=== PATIENT | male | born 1950 | race Caucasian/White ===

== ENCOUNTER 2025-07-10 12:36 | Observation (INO) ==
--- NOTE | 2025-07-10 13:40 | DR.ABDMALE ---
HPI Time seen Time Seen by Provider: 07/10/25 13:39 PCP Primary Care Physician: HAROLDO GARDNER Complaint Chief Complaint Doctors Comments: Patient with complaint of left lower quadrant pain since yesterday morning. Patient states the pain is worsening. Patient denies fever. Patient denies diarrhea, constipation, vomiting or nausea. Chief Complaint:: Pt states he woke up yesterday morning with LLQ pain with pain progressively getting worse. Now it is a sharp stabbing pain. Pt states he had a normal BM yesterday, no diarrhea. Pt ate a meal around 3 pm yesterday but has not had anything else since. Pt states he took his levothyroxine this morning and a glass of water, nothing else. COVID-19 Coronavirus risk:travel/contact w/high risk person: No Has patient experienced Coronavirus symptoms: No Mode of arrival Mode of Arrival: Ambulatory Timing Onset of Chief Complaint: 07/09/25 PMH PMH Past Medical History: Yes Past Medical History: Hypertension and Hypothyroidism Past Medical History Comment: PROSTATE PROBLEMS TAKES BABY ASPIRIN FARXIGA Past Surgical History: Yes Surgical History: Cholecystectomy and Ortho Surgery Family History History of Family Medical Conditions: Yes Family Medical History: Hypertension Social History Does patient currently use any type of tobacco product: No Have you used tobacco products in the last 12 months: No Type of Tobacco Use: None Does any household member use tobacco: No Alcohol Use: None Do you use any recreational Drugs:: No Lives With: Alone Lives Where: Home Travel Risk Coronavirus risk:travel/contact w/high risk person: No Has patient experienced Coronavirus symptoms: No Infectious screening In the last 2 months have you had wt loss of >10#?: NO Have you had fever, night sweats or hemotysis?: No Have you traveled outside the country in the last 6 months?: No Isolation: Standard ROS Review of Systems Constitutional: No Symptoms Reported Eyes: No Symptoms Reported ENTM: No Symptoms Reported Respiratoy: No Symptoms Reported Cardiovascular: No Symptoms Reported Gastrointestinal/Abdominal: See HPI Genitourinary: No Symptoms Reported Neurological: No Symptoms Reported Musculoskeletal: No Symptoms Reported Integumentary: No Symptoms Reported Hematologic/Lymphatic: No Symptoms Reported Endocrine: No Symptoms Reported Psychiatric: No Symptoms Reported All Other Systems: Reviewed and Negative PE Vital Signs Vital Signs: Temp Pulse Resp BP Pulse Ox O2 Del Method 07/10/25 12:52 97.8 F 72 20 130/58 95 Room Air General Limitations: No Limitations General Appearance: Alert and In No Apparent Distress Head Head Exam: Normal Inspection Eyes Eye exam: Normal Appearance Neck Neck Exam: Normal Inspection Chest Chest Inspection: Normal Inspection Respiratory Respiratory Exam: Normal Lung Sounds Bilat Cardiovascular Cardiovascular Exam: Regular Rate and Normal Rhythm Abdominal Exam Abdominal Exam: Normal Inspection, Normal Bowel Sounds, Soft and Tenderness (Left lower quadrant); negative Distention, Guarding, Rebound, Rigidity, Organomegaly or Ascites Rectal Rectal Exam: Deferred Back Back Exam: Normal Inspection Extremeties Extremities Exam: Normal Inspection Exam: Male: Deferred Neurologic Neurological Exam: Alert and Oriented X3 Psychiatric Psychiatric Exam: Normal Affect and Normal Mood Skin Skin Exam: Warm, Dry, Intact and Normal Color COURSE Treatment Treatment: Discussed results of workup with patient and family. Patient agreeable to admission Consultation Consultation Comments: Discussed case with Dr. Trinh and he is agreeable to admission. ROR Labs Reviewed Laboratory Results Reviewed?: Yes 07/10/25 13:50 07/10/25 13:50 Laboratory: WBC 12.8 X10^3/uL (3.6-10.0) H 07/10/25 13:50 RBC 4.92 X10^6/uL (4.7-6.0) 07/10/25 13:50 Hgb 15.1 g/dL (13.5-18.0) 07/10/25 13:50 Hct 45.1 % (42.0-54.0) 07/10/25 13:50 MCV 91.6 fL (80.0-100.0) 07/10/25 13:50 MCH 30.6 pg (27.0-34.0) 07/10/25 13:50 MCHC 33.4 g/dL (33.0-35.0) 07/10/25 13:50 RDW 14.9 % (11.6-16.5) 07/10/25 13:50 Plt Count 200 X10^3/uL (150.0-450.0) 07/10/25 13:50 MPV 8.8 fL (7.4-11.0) 07/10/25 13:50 Neut % (Auto) 77.9 % (42.0-75.0) H 07/10/25 13:50 Lymph % (Auto) 9.0 % (21.0-51.0) L 07/10/25 13:50 Dunn % (Auto) 12.3 % (0.0-13.0) 07/10/25 13:50 Eos % (Auto) 0.5 % (0.9-2.9) L 07/10/25 13:50 Baso % (Auto) 0.3 % (0.2-1.0) 07/10/25 13:50 Neut # (Auto) 10.0 x10^3/uL (2.2-4.8) H 07/10/25 13:50 Lymph # (Auto) 1.1 X10^3/uL (1.3-2.9) L 07/10/25 13:50 Dunn # (Auto) 1.6 x10^3/uL (0.3-0.8) H 07/10/25 13:50 Eos # (Auto) 0.1 x10^3/uL (0.0-0.2) 07/10/25 13:50 Baso # (Auto) 0.0 X10^3/uL (0.0-0.1) 07/10/25 13:50 Absolute Nucleated RBC 0.0 /100WBC 07/10/25 13:50 Sodium 138 mmol/L (136-145) 07/10/25 13:50 Corrected Sodium TNP 07/10/25 13:50 Potassium 4.8 mmol/L (3.5-5.1) 07/10/25 13:50 Chloride 102 mmol/L (98-107) 07/10/25 13:50 Carbon Dioxide 28.6 mmol/L (21-32) 07/10/25 13:50 BUN 26 mg/dL (7-18) H 07/10/25 13:50 Creatinine 1.74 mg/dL (0.70-1.30) H 07/10/25 13:50 Est GFR (MDRD) Af Amer 49 (>60) L 07/10/25 13:50 Est GFR (MDRD) Non-Af 41 (>60) L 07/10/25 13:50 Glucose 98 mg/dL (65-99) 07/10/25 13:50 Calcium 8.7 mg/dL (8.5-10.1) 07/10/25 13:50 Corrected Calcium TNP 07/10/25 13:50 Total Bilirubin 0.60 mg/dL (0.2-1.0) 07/10/25 13:50 AST 15 Units/L (15-37) 07/10/25 13:50 ALT 22 Units/L (12-78) 07/10/25 13:50 Alkaline Phosphatase 44 Units/L (46-116) L 07/10/25 13:50 Total Protein 7.7 g/dL (6.4-8.2) 07/10/25 13:50 Albumin 3.4 g/dL (3.4-5.0) 07/10/25 13:50 Globulin 4.3 g/dL (2.5-4.5) 07/10/25 13:50 Albumin/Globulin Ratio 0.8 Ratio (1.1-2.1) L 07/10/25 13:50 Amylase 104 Units/L (25-115) 07/10/25 13:50 Lipase 81 Units/L (16-77) H 07/10/25 13:50 Specimen Type Clean catch urine 07/10/25 14:17 Urine Color Yellow (YELLOW) 07/10/25 14:17 Urine Appearance Clear (CLEAR) 07/10/25 14:17 Urine pH 6.0 (5.0 - 8.0) 07/10/25 14:17 Ur Specific [place] 1.020 (1.000-1.030) 07/10/25 14:17 Urine Protein 2+ (NEGATIVE) 07/10/25 14:17 Urine Glucose (UA) 1+ (NEGATIVE) 07/10/25 14:17 Urine Ketones Negative (NEGATIVE) 07/10/25 14:17 Urine Blood 2+ (NEGATIVE) 07/10/25 14:17 Urine Nitrite Negative (NEGATIVE) 07/10/25 14:17 Urine Bilirubin Negative (NEGATIVE) 07/10/25 14:17 Urine Urobilinogen Normal (NORMAL) 07/10/25 14:17 Ur Leukocyte Esterase Negative (NEGATIVE) 07/10/25 14:17 Urine RBC 0-2 /HPF (0-3) 07/10/25 14:17 Urine WBC 0-2 /HPF (0-5) 07/10/25 14:17 Ur Squamous Epith Cells Rare /HPF (NEGATIVE) 07/10/25 14:17 Urine Bacteria Trace /HPF (NEGATIVE) 07/10/25 14:17 Hyaline Casts Few /LPF (NEGATIVE) 07/10/25 14:17 Ur Culture Indicated? No/not indicated 07/10/25 14:17 Other Results Comments: [id number] 1950 Sex: M Location: ER Order Number(s): [id number] Procedure(s):CT ABDOMEN/PELVIS W/O CON Ordering Physician: Arthur Dobbs Primary Care: HAROLDO GARDNER Service Date: 07/10/25 Service Time: 1339 EXAM: CT ABDOMEN AND PELVIS WITHOUT CONTRAST HISTORY: ABDOMINAL PAIN ; COMPARISON: CT abdomen and pelvis dated January 24, 2022. TECHNIQUE: Axial CT images were obtained through the abdomen and pelvis without contrast. Coronal reformatted images were included. All CT scans at this facility use dose modulation, iterative reconstruction, and/or weight based dosing when appropriate to reduce radiation dose to as low as reasonably achievable. FINDINGS: Technical note: Without the use of intravenous contrast, evaluation of solid abdominal viscera, vascular structures, urinary structures, and bowel is limited. LOWER THORAX: Unremarkable. ABDOMEN: LIVER: Unremarkable. GALLBLADDER: Status post cholecystectomy. SPLEEN: Unremarkable. PANCREAS: Unremarkable. KIDNEYS: No obstructive uropathy. Mild bilateral perinephric stranding/fluid is nonspecific and can be seen normally but can also be associated with UTI, correlate clinically. ADRENAL GLANDS: Unremarkable. ABDOMINAL AORTA: Calcifications of the abdominal aorta without evidence of aneurysmal dilatation. 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 LYMPH NODES: No evidence of enlarged nodes. GI TRACT: No evidence for intestinal obstruction. Colonic diverticulosis. Diverticulitis of the distal descending colon at its junction with the sigmoid colon within the upper left pelvis. No evidence for abscess or free air. ASCITES: None. PNEUMOPERITONEUM: None. Umbilical/periumbilical fat containing abdominal wall hernia. This is stable compared to the prior CT exam. PELVIS: APPENDIX: Unremarkable. RECTOSIGMOID COLON: Unremarkable. BLADDER: Unremarkable GENITALS: Prostate does not appear to be enlarged. ASCITES: None. LYMPH NODES: No evidence for enlarged nodes. INGUINAL HERNIA: None. BONES: Degenerative changes of the spine and the SI joints. IMPRESSION: Diverticulitis of the distal descending colon at its junction with the sigmoid colon within the upper left pelvis. No evidence for abscess or free air. Mild bilateral perinephric stranding/fluid is nonspecific and can be seen normally but can also be associated with UTI, correlate clinically. Other findings as above. THIS IS AN ELECTRONICALLY VERIFIED FINAL REPORT 07/10/2025 4:06 PM - Electronically signed by Jaya Brennan DO Opioid Opioid Risk Tool Age (G[place]ito box if 16-45): No History of Preadolescent Sexual Abuse: No Total: 0 Total Score Risk Category: Low Risk Copyright: [facility] predicting aberrant behaviors Discharge Plan Diagnosis Discharge Problem: Diverticulitis, Acute kidney injury, Elevated WBC count Discharge Plan Patient Disposition: ADMITTED INPATIENT Condition: Stable Prescriptions: No Action temazepam 30 mg Capsule 30 mg PO HS levothyroxine 50 mcg Tablet 50 mcg PO DAILY omeprazole 20 mg Capsule,Delayed Release(Dr/Ec) 20 mg PO DAILY doxazosin 2 mg Tablet 2 mg PO DAILY Health Concerns: Post Hospitalization: new medications and changes needed to prevent readmission or further decline. Pt educated and given instructions on all concerns. Plan of Treatment: Continue with present treatment and follow up plan. Pt is to keep follow up appointment as instructed and take medications as ordered. Orders to Discharge Patient Discharge Orders: Transfer (Routine); Ordered 07/10/25 Ordered By: Arthur Dobbs Follow ups/Referrals Follow ups/Referrals: HAROLDO GARDNER [Primary Care Provider, Unknown] - 3 days Instructions Stand Alone Forms: Find Help Web Site, Post Hospital Follow Up Care Print Language: UZBEK
[2025-07-10 13:56] LABS: MEAN PLATELET VOLUME 8.8 fL (7.4-11.0); RED CELL DISTRIBUTION WIDTH 14.9 % (11.6-16.5)
[2025-07-10 14:10] LABS: CREATININE 1.74 mg/dL (0.70-1.30); eGFR NON BLACK RACES 41 (>60)
[2025-07-10 14:29] LABS: BLOOD/HEMOGLOBIN,URINE 2+ (NEGATIVE); LEUKOCYTE ESTERASE ,URINE NEGATIVE (NEGATIVE); NITRITES,URINE NEGATIVE (NEGATIVE)
[2025-07-10 14:30] LABS: APPEARANCE,URINE CLEAR (CLEAR)
[2025-07-10 14:41] LABS: HYALINE CASTS, URINE FEW /LPF (NEGATIVE); SQUAMOUS EPITHELIAL CELL,UR RARE /HPF (NEGATIVE)
--- NOTE | 2025-07-10 16:09 | CT ---
EXAM: CT ABDOMEN AND PELVIS WITHOUT CONTRAST HISTORY: ABDOMINAL PAIN ; COMPARISON: CT abdomen and pelvis dated January 24, 2022. TECHNIQUE: Axial CT images were obtained through the abdomen and pelvis without contrast. Coronal reformatted images were included. All CT scans at this facility use dose modulation, iterative reconstruction, and/or weight based dosing when appropriate to reduce radiation dose to as low as reasonably achievable. FINDINGS: Technical note: Without the use of intravenous contrast, evaluation of solid abdominal viscera, vascular structures, urinary structures, and bowel is limited. LOWER THORAX: Unremarkable. ABDOMEN: LIVER: Unremarkable. GALLBLADDER: Status post cholecystectomy. SPLEEN: Unremarkable. PANCREAS: Unremarkable. KIDNEYS: No obstructive uropathy. Mild bilateral perinephric stranding/fluid is nonspecific and can be seen normally but can also be associated with UTI, correlate clinically. ADRENAL GLANDS: Unremarkable. ABDOMINAL AORTA: Calcifications of the abdominal aorta without evidence of aneurysmal dilatation. 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 LYMPH NODES: No evidence of enlarged nodes. GI TRACT: No evidence for intestinal obstruction. Colonic diverticulosis. Diverticulitis of the distal descending colon at its junction with the sigmoid colon within the upper left pelvis. No evidence for abscess or free air. ASCITES: None. PNEUMOPERITONEUM: None. Umbilical/periumbilical fat containing abdominal wall hernia. This is stable compared to the prior CT exam. PELVIS: APPENDIX: Unremarkable. RECTOSIGMOID COLON: Unremarkable. BLADDER: Unremarkable GENITALS: Prostate does not appear to be enlarged. ASCITES: None. LYMPH NODES: No evidence for enlarged nodes. INGUINAL HERNIA: None. BONES: Degenerative changes of the spine and the SI joints. IMPRESSION: Diverticulitis of the distal descending colon at its junction with the sigmoid colon within the upper left pelvis. No evidence for abscess or free air. Mild bilateral perinephric stranding/fluid is nonspecific and can be seen normally but can also be associated with UTI, correlate clinically. Other findings as above. THIS IS AN ELECTRONICALLY VERIFIED FINAL REPORT 07/10/2025 4:06 PM - Electronically signed by Jaya Brennan DO
[2025-07-10] MEDS ORDERED: ROCEPHIN VIAL 1 GRAM IM SCH (17:00)
[2025-07-10] MEDS: NS 1,000 ML IV 1,000 ML IV ONE (17:04)
[2025-07-10] MEDS: FLAGYL IV PREMIX 500 MG BAG 500 MG/100 ML BAG IV SCH (17:04)
[2025-07-10] MEDS: ROCEPHIN VIAL 1 GRAM IV ONE (17:04)
[2025-07-10] MEDS ORDERED: NovoLIN R (or HumuLIN R) SUBCUT PRN (18:01)
[2025-07-10] MEDS ORDERED: TYLENOL 325 MG TAB PO PRN (18:01)
[2025-07-10] MEDS ORDERED: ZOFRAN INJ 4 MG VIAL IVP PRN (18:01)
[2025-07-10] MEDS ORDERED: MORPHINE SULFATE INJ 2 MG INJ IVP PRN (18:01)
[2025-07-10] MEDS ORDERED: CONSULT PHARMACY - POTASSIUM & MAGNESIUM XX SCH (18:01)
[2025-07-10] MEDS ORDERED: ULTRAM PO PRN (18:01)
[2025-07-10] MEDS ORDERED: NORCO 5/325 MG TAB PO PRN (18:01)
[2025-07-10] MEDS: ROCEPHIN VIAL 1 GRAM 1 G in NS 100 ML IV 100 ML IV SCH (18:28)
[2025-07-10 19:15] VITALS: BMI 35.6
[2025-07-10] MEDS: NS 1,000 ML IV 1,000 ML IV SCH (19:28)
[2025-07-10] MEDS ORDERED: SNACK - Diabetic Appropriate PO SCH (20:00)
[2025-07-10] MEDS: MAG-OX TAB PO ONE (20:26)
[2025-07-10] MEDS: RESTORIL CAP 15 MG PO SCH (20:26)
[2025-07-11 05:19] LABS: COR CA(FOR HYPOALB) 9.1 mg/dL (8.5-10.1); CREATININE 1.57 mg/dL (0.70-1.30); eGFR NON BLACK RACES 46 (>60)
[2025-07-11 05:23] LABS: MEAN PLATELET VOLUME 9.3 fL (7.4-11.0); RED CELL DISTRIBUTION WIDTH 14.7 % (11.6-16.5)
[2025-07-11] MEDS: CARDURA PO SCH (09:00)
[2025-07-11] MEDS: ASPIRIN EC 81 MG PO SCH (09:34)
[2025-07-11 12:07] VITALS: BP 118/56; PULSE 62; RESP 16; TEMP 97.9; O2SAT 95
--- NOTE | 2025-07-17 11:36 | DR.SSS ---
SHORT STAY SUMMARY Admission Date Date of Admission: 07/10/25 Discharge Date Discharge Date: 07/11/25 Admission Diagnoses Admission Diagnoses: Abdominal pain DORCAS Acute diverticulitis Discharge Diagnoses Discharge Diagnoses: Diverticulitis Abdominal pain Dehydration DORCAS on CKD Chief Complaint Chief Complaint: abdominal pain, N/V History of Present Illness History of Present Illness: Patient is a 75-year-old male with a past medical history of hypertension, CKD, hypothyroidism presented with worsening abdominal pain. ER workup included CTAP which showed diverticulitis. Patient was started on IV fluids and antibiotics. He was admitted for further management. Past Medical History Past Medical History: Hypertension and Hypothyroidism Past Surgical History Surgical History: Cholecystectomy and Ortho Surgery Allergies Allergies Allergy/AdvReac Type Severity Reaction Status Date / Time ondansetron (From Zofran) Allergy Verified 02/27/22 08:47 tamsulosin (From Flomax) Allergy Verified 02/27/22 08:47 Medications Home Medications: ondansetron (From Zofran) Allergy (Verified 02/27/22 08:47) tamsulosin (From Flomax) Allergy (Verified 02/27/22 08:47) CONTINUE taking the following medications amlodipine 10 mg tablet 10 mg PO HS 07/10/25 [History] aspirin 81 mg tablet,delayed release 81 mg PO QDAY 07/10/25 [History] cetirizine 10 mg tablet 10 mg PO QDAY 07/10/25 [History] dapagliflozin propanediol 10 mg tablet (Farxiga) 10 mg PO HS 07/10/25 [History] ergocalciferol (vitamin D2) 1,250 mcg (50,000 unit) capsule 1,250 mcg PO WEEKLY 07/10/25 [History] magnesium 200 mg tablet 200 mg PO DAILY leg cramps 07/10/25 [History] olmesartan 40 mg-hydrochlorothiazide 25 mg tablet 1 tab PO HS 07/10/25 [History] New Prescriptions ciprofloxacin HCl 500 mg tablet 500 mg PO BID 7 days #14 tabs 07/11/25 [Rx] metronidazole 500 mg tablet 500 mg PO Q8H 7 days #21 tabs 07/11/25 [Rx] Family History Family Medical History: Diabetes Mellitus, Cancer, [place], Coronary Artery Disease, Heart Failure, Sudden Cardiac and Hypertension Social History Does patient currently use any type of tobacco product: No Have you used tobacco products in the last 12 months: No Type of Tobacco Use: None Does any household member use tobacco: No Alcohol Use: None Drug Use: None Physical Exam Vital Signs: Last Vital Signs Temp 97.9 F 07/11/25 12:00 Pulse 62 07/11/25 12:00 Resp 16 07/11/25 12:00 BP 118/56 07/11/25 12:00 Pulse Ox 95 07/11/25 12:00 O2 Del Method Room Air 07/11/25 12:00 Oriented: Normal Eyes: Normal Respiratory: Clear Throughout Cardiovascular: Normal Auscultation: Bowel Sounds: Normal Palpation: Normal Tenderness: Normal Skin: Normal Musculoskeletal: Normal Psychiatric: Normal Affect: Normal Speech Pattern: Clear Labs Labs: Laboratory Last Values WBC 10.0 X10^3/uL (3.6-10.0) 07/11/25 04:46 RBC 4.40 X10^6/uL (4.7-6.0) L 07/11/25 04:46 Hgb 13.7 g/dL (13.5-18.0) 07/11/25 04:46 Hct 40.2 % (42.0-54.0) L 07/11/25 04:46 MCV 91.4 fL (80.0-100.0) 07/11/25 04:46 MCH 31.2 pg (27.0-34.0) 07/11/25 04:46 MCHC 34.2 g/dL (33.0-35.0) 07/11/25 04:46 RDW 14.7 % (11.6-16.5) 07/11/25 04:46 Plt Count 185 X10^3/uL (150.0-450.0) 07/11/25 04:46 MPV 9.3 fL (7.4-11.0) 07/11/25 04:46 Neut % (Auto) 70.4 % (42.0-75.0) 07/11/25 04:46 Lymph % (Auto) 15.4 % (21.0-51.0) L 07/11/25 04:46 Scott % (Auto) 13.2 % (0.0-13.0) H 07/11/25 04:46 Eos % (Auto) 0.7 % (0.9-2.9) L 07/11/25 04:46 Baso % (Auto) 0.3 % (0.2-1.0) 07/11/25 04:46 Neut # (Auto) 7.0 x10^3/uL (2.2-4.8) H 07/11/25 04:46 Lymph # (Auto) 1.5 X10^3/uL (1.3-2.9) 07/11/25 04:46 Scott # (Auto) 1.3 x10^3/uL (0.3-0.8) H 07/11/25 04:46 Eos # (Auto) 0.1 x10^3/uL (0.0-0.2) 07/11/25 04:46 Baso # (Auto) 0.0 X10^3/uL (0.0-0.1) 07/11/25 04:46 Absolute Nucleated RBC 0.2 /100WBC 07/11/25 04:46 Sodium 141 mmol/L (136-145) 07/11/25 04:46 Corrected Sodium TNP 07/11/25 04:46 Potassium 4.9 mmol/L (3.5-5.1) 07/11/25 04:46 Chloride 106 mmol/L (98-107) 07/11/25 04:46 Carbon Dioxide 29.2 mmol/L (21-32) 07/11/25 04:46 BUN 22 mg/dL (7-18) H 07/11/25 04:46 Creatinine 1.57 mg/dL (0.70-1.30) H 07/11/25 04:46 Est GFR (MDRD) Af Amer 56 (>60) L 07/11/25 04:46 Est GFR (MDRD) Non-Af 46 (>60) L 07/11/25 04:46 Glucose 100 mg/dL (65-99) H 07/11/25 04:46 Calcium 8.1 mg/dL (8.5-10.1) L 07/11/25 04:46 Corrected Calcium 9.1 mg/dL (8.5-10.1) 07/11/25 04:46 Total Bilirubin 0.60 mg/dL (0.2-1.0) 07/11/25 04:46 AST 14 Units/L (15-37) L 07/11/25 04:46 ALT 15 Units/L (12-78) 07/11/25 04:46 Alkaline Phosphatase 38 Units/L (46-116) L 07/11/25 04:46 Total Protein 6.7 g/dL (6.4-8.2) 07/11/25 04:46 Albumin 2.7 g/dL (3.4-5.0) L 07/11/25 04:46 Globulin 4.0 g/dL (2.5-4.5) 07/11/25 04:46 Albumin/Globulin Ratio 0.7 Ratio (1.1-2.1) L 07/11/25 04:46 Amylase 104 Units/L (25-115) 07/10/25 13:50 Lipase 81 Units/L (16-77) H 07/10/25 13:50 Specimen Type Clean catch urine 07/10/25 14:17 Urine Color Yellow (YELLOW) 07/10/25 14:17 Urine Appearance Clear (CLEAR) 07/10/25 14:17 Urine pH 6.0 (5.0 - 8.0) 07/10/25 14:17 Ur Specific [place] 1.020 (1.000-1.030) 07/10/25 14:17 Urine Protein 2+ (NEGATIVE) 07/10/25 14:17 Urine Glucose (UA) 1+ (NEGATIVE) 07/10/25 14:17 Urine Ketones Negative (NEGATIVE) 07/10/25 14:17 Urine Blood 2+ (NEGATIVE) 07/10/25 14:17 Urine Nitrite Negative (NEGATIVE) 07/10/25 14:17 Urine Bilirubin Negative (NEGATIVE) 07/10/25 14:17 Urine Urobilinogen Normal (NORMAL) 07/10/25 14:17 Ur Leukocyte Esterase Negative (NEGATIVE) 07/10/25 14:17 Urine RBC 0-2 /HPF (0-3) 07/10/25 14:17 Urine WBC 0-2 /HPF (0-5) 07/10/25 14:17 Ur Squamous Epith Cells Rare /HPF (NEGATIVE) 07/10/25 14:17 Urine Bacteria Trace /HPF (NEGATIVE) 07/10/25 14:17 Hyaline Casts Few /LPF (NEGATIVE) 07/10/25 14:17 Ur Culture Indicated? No/not indicated 07/10/25 14:17 Hospital Course Hospital Course: Patient remained on IV antibiotics. His labs are monitored daily and electrolytes replaced as needed. He was tolerating p.o. intake. His abdominal pain, nausea and vomiting had resolved. He was ambulating in the room. His renal function improved. He was stable for discharge. He will be discharged on p.o. antibiotics. He will follow-up with PCP as scheduled. Discharge Medications Discharge Medications: Home Medication List amlodipine 10 mg tablet 10 mg PO HS 07/10/25 [History] aspirin 81 mg tablet,delayed release 81 mg PO QDAY 07/10/25 [History] cetirizine 10 mg tablet 10 mg PO QDAY 07/10/25 [History] dapagliflozin propanediol 10 mg tablet (Farxiga) 10 mg PO HS 07/10/25 [History] ergocalciferol (vitamin D2) 1,250 mcg (50,000 unit) capsule 1,250 mcg PO WEEKLY 07/10/25 [History] magnesium 200 mg tablet 200 mg PO DAILY leg cramps 07/10/25 [History] olmesartan 40 mg-hydrochlorothiazide 25 mg tablet 1 tab PO HS 07/10/25 [History] ciprofloxacin HCl 500 mg tablet 500 mg PO BID 7 days #14 tabs 07/11/25 [Rx] metronidazole 500 mg tablet 500 mg PO Q8H 7 days #21 tabs 07/11/25 [Rx] Prescriptions: ciprofloxacin HCl Melissa Webster metronidazole Melissa Webster Discharge Disposition Discharge Disposition: home Discharge Plan Discharge Plan Patient Disposition: HOME, SELF-CARE Condition: Stable Health Concerns: Post Hospitalization: new medications and changes needed to prevent readmission or further decline. Pt educated and given instructions on all concerns. Care Plan Goals: Problem: Pain/Alteration in Comfort Goal: Improve/ Resolve Pain; Achieve Pain Tolerance Instructions: Take pain medications as prescribed. Contact your primary care provider if your pain is unrelieved or worsens. Follow up with primary care provider as directed. Plan of Treatment: Continue with present treatment and follow up plan. Pt is to keep follow up appointment as instructed and take medications as ordered. Assessment: No distress noted. Prescription drug monitoring program results: PDMP reviewed and no concerns identified Prescriptions: New ciprofloxacin HCl 500 mg tablet 500 mg PO BID 7 Days Qty: 14 0RF metronidazole 500 mg tablet 500 mg PO Q8H 7 Days Qty: 21 0RF Continued levothyroxine 50 mcg Tablet 75 mcg PO DAILY doxazosin 2 mg Tablet 2 mg PO HS dapagliflozin propanediol [Farxiga] 10 mg tablet 10 mg PO HS amlodipine 10 mg tablet 10 mg PO HS olmesartan-hydrochlorothiazide 40-25 mg tablet 1 tab PO HS aspirin 81 mg Tablet,Delayed Release (Dr/Ec) 81 mg PO QDAY cetirizine 10 mg Tablet 10 mg PO QDAY ergocalciferol (vitamin D2) 1,250 mcg (50,000 unit) Capsule 1,250 mcg PO WEEKLY Patient Comments: Patient takes once a week on Friday. magnesium 200 mg Tablet 200 mg PO DAILY Orders to Discharge Patient Discharge Orders: Discharge (Routine); Ordered 07/11/25 Ordered By: Melissa Webster Follow ups/Referrals Follow ups/Referrals: Jayden Zimmerman [STAFF PHYSICIAN, MEDICAL] - 07/18/25 9:20 am Instructions Instructions: Acute Kidney Injury, Adult, Diverticulitis, [id number], Form - Blood Pressure Record Sheet, Managing Your Hypertension Activity Restrictions/Additional Instructions: needs to recheck kidney function at PCP follow up. Resume olmesartan-hctz after seen by PCP. Monitor blood pressure daily. Stand Alone Forms: Find Help Web Site, Post Hospital Follow Up Care Print Language: HUNGARIAN
== END 2025-07-11 14:55 | disposition home or self-care (01) ==
LOC: ER 12:41 → MED/SURG 12:41
PROVIDERS: ADMIT Family Medicine; ATTEND Internal Medicine
DX: R94.4 Abnormal results of kidney function studies; Z79.899 Other long term (current) drug therapy; K57.32 Diverticulitis of large intestine without perforation or abscess without bleeding; N18.9 Chronic kidney disease, unspecified; E03.8 Other specified hypothyroidism; R79.89 Other specified abnormal findings of blood chemistry; R10.84 Generalized abdominal pain; R10.32 Left lower quadrant pain; R11.2 Nausea with vomiting, unspecified; N17.8 Other acute kidney failure; E86.0 Dehydration; I12.9 Hypertensive chronic kidney disease with stage 1 through stage 4 chronic kidney disease, or unspecified chronic kidney disease; D72.828 Other elevated white blood cell count